=== PATIENT | male | born 1980 | race Caucasian/White ===

== ENCOUNTER → 2016-08-30 | Outpatient (CLI) | payer BC ==
[2016-08-30 16:53] LABS: Basophils # (auto) 0 uL; Basophils % (auto) 0.2 % (0.0-2.0); Eosinophils # (auto) 0.1 uL; Eosinophils % (auto) 0.7 % (0.0-7.0); Hematocrit 45.2 % (41.0-53.0); Hemoglobin 15.2 g/dL (13.5-17.5); Lymphocytes # (auto) 3.3 uL; Lymphocytes % (auto) 31.3 % (10.0-50.0); Mean Corpuscular Hemoglobin 29.5 pg (28.0-32.0); Mean Corpuscular Hgb Conc. 33.5 g/dL (32.0-36.0); Mean Corpuscular Volume 87.9 fL (80.0-100.0); Mean Platelet Volume 11.1 fL (7.4-10.4); Monocytes # (auto) 0.6 uL; Monocytes % (auto) 5.9 % (0.0-12.0); Neutrophils # (auto) 6.5 uL; Neutrophils % (auto) 61.9 % (37.0-80.0); Platelet Count (auto) 271 10^3/uL (140-450); Red Cell Distribution Width 13.6 % (11.6-16.0); White Blood Cell 10.6 10^3/uL (4.4-10.8)
[2016-08-30 17:09] LABS: INR 1.12 (0.9-1.15); Partial Thromboplastin Time 31.8 sec (22.64-33.71); Prothrombin Time 11.5 sec (9.37-12.3)
== END | disposition home or self-care (01) ==
LOC: LAB 14:39
PROVIDERS: ATTEND Internal Medicine Gastroenterology
DX: Z01.812 Encounter for preprocedural laboratory examination (principal); R79.1 Abnormal coagulation profile
CPT/HCPCS: 36415; 85025; 85610; 85730

== ENCOUNTER 2016-09-02 08:06 | Day surgery (SDC) | payer BC ==
[~2016-09-02] VITALS: Ht 182.9 cm; Wt 90.7 kg
[2016-09-02] MEDS ORDERED: SODIUM CHLORIDE LOCK 10 ML ONE (08:14)
[2016-09-02] MEDS ORDERED: diphenhdrAMINE HCL 50 MG/1 ML VL ONE (08:14)
[2016-09-02] MEDS ORDERED: FLUMAZENIL 0.1 MG/ML INJ 10ML MDV IV ONE (08:17)
[2016-09-02] MEDS ORDERED: NALOXONE HCL 0.4 MG/ML VIAL ONE (08:17)
[2016-09-02] MEDS: MIDAZOLAM HCL 5 MG/ML-1ML VIAL ONE ×3 (08:49→08:55)
[2016-09-02] MEDS: fentaNYL CITRATE 100 MCG/2 ML VL ONE ×2 (08:49→08:52)
[2016-09-02] MEDS ORDERED: MIDAZOLAM HCL 5 MG/ML-1ML VIAL ONE (08:55)
[2016-09-02] MEDS ORDERED: fentaNYL CITRATE 100 MCG/2 ML VL ONE (08:55)
[2016-09-02 09:45] VITALS: BP 109/59
== END 2016-09-02 09:45 | disposition home or self-care (01) ==
LOC: GI 08:06
PROVIDERS: ATTEND Internal Medicine Gastroenterology
DX: R19.5 Other fecal abnormalities (principal)
CPT/HCPCS: 45378; J1200; J2250; J3010; J7030

== ENCOUNTER → 2016-10-15 | Outpatient (CLI) | payer BC ==
[2016-10-15 07:47] LABS: Basophils # (auto) 0 uL; Basophils % (auto) 0.2 % (0.0-2.0); Eosinophils # (auto) 0.1 uL; Eosinophils % (auto) 1.2 % (0.0-7.0); Hematocrit 43.6 % (41.0-53.0); Hemoglobin 14.5 g/dL (13.5-17.5); Lymphocytes # (auto) 3.1 uL; Lymphocytes % (auto) 41.6 % (10.0-50.0); Mean Corpuscular Hemoglobin 29.3 pg (28.0-32.0); Mean Corpuscular Hgb Conc. 33.3 g/dL (32.0-36.0); Mean Corpuscular Volume 87.8 fL (80.0-100.0); Mean Platelet Volume 11.1 fL (7.4-10.4); Monocytes # (auto) 0.6 uL; Monocytes % (auto) 7.5 % (0.0-12.0); Neutrophils # (auto) 3.7 uL; Neutrophils % (auto) 49.5 % (37.0-80.0); Platelet Count (auto) 287 10^3/uL (140-450); Red Cell Distribution Width 13.7 % (11.6-16.0); SUSPECT VIEW TRANSMISSION; White Blood Cell 7.4 10^3/uL (4.4-10.8)
[2016-10-15 08:10] LABS: Albumin 4.1 g/dL (3.4-5.0); BUN/Creatinine Ratio 20.6; Bilirubin, Total 0.5 mg/dL (0.2-1.0); Calcium 8.7 mg/dL (8.5-10.1); Potassium 4.1 mmol/L (3.5-5.1); Total Protein 7.6 g/dL (6.4-8.2)
== END | disposition home or self-care (01) ==
LOC: LAB 07:01
PROVIDERS: ATTEND Internal Medicine
DX: R53.83 Other fatigue (principal); K62.5 Hemorrhage of anus and rectum
CPT/HCPCS: 36415; 80053; 80061; 84439; 84443; 85025; 85379

== ENCOUNTER → 2018-02-07 | Outpatient (CLI) | payer BC ==
[2018-02-07 08:23] LABS: Basophils # (auto) 0 uL; Basophils % (auto) 0.2 % (0.0-2.0); Eosinophils # (auto) 0.1 uL; Eosinophils % (auto) 1.4 % (0.0-7.0); Hematocrit 41.7 % (41.0-53.0); Hemoglobin 13.7 g/dL (13.5-17.5); Lymphocytes % (auto) 33.5 % (10.0-50.0); Mean Corpuscular Hemoglobin 27.6 pg (28.0-32.0); Mean Corpuscular Volume 83.6 fL (80.0-100.0); Monocytes # (auto) 0.6 uL; Monocytes % (auto) 9.4 % (0.0-12.0); Neutrophils # (auto) 3.3 uL; Neutrophils % (auto) 55.5 % (37.0-80.0); Platelet Count (auto) 260 10^3/uL (140-450); Red Blood Cells 4.99 10^6/uL (4.5-5.90); Red Cell Distribution Width 15.2 % (11.8-14.3); White Blood Cell 5.9 10^3/uL (4.4-10.8)
[2018-02-07 08:24] LABS: Urine Bacteria NONE SEEN /hpf (None Seen); Urine Blood Negative /uL (Negative); Urine Specific Gravity 1.016 (1.001-1.035); Urine WBC <1 /hpf (0 - 3)
[2018-02-07 09:04] LABS: Micro Albumin 7.06 mg/L (0-30.0)
[2018-02-07 09:19] LABS: Albumin 4.1 g/dL (3.4-5.0); BUN/Creatinine Ratio 12.3; Bilirubin, Total 0.3 mg/dL (0.2-1.0); Calcium 8.8 mg/dL (8.5-10.1); Potassium 4.2 mmol/L (3.5-5.1); Total Protein 7.8 g/dL (6.4-8.2)
== END | disposition home or self-care (01) ==
LOC: LAB 07:51
DX: Z01.89 Encounter for other specified special examinations (principal); R53.83 Other fatigue
CPT/HCPCS: 36415; 80053; 81001; 82043; 82570; 83036; 84403; 85025; 86664; 87086

== ENCOUNTER → 2019-12-09 | Outpatient (CLI) | payer BC | END | disposition home or self-care (01) | LOC: LAB 07:44 | PROVIDERS: ATTEND Nurse Practitioner Family | DX: Z03.818 Encounter for observation for suspected exposure to other biological agents ruled out (principal) | CPT/HCPCS: 87635 ==

== ENCOUNTER → 2021-02-19 | Outpatient (CLI) | payer BC ==
[2021-02-19 11:47] LABS: Basophils # (auto) 0 10 ^3/uL (0-0.2); Basophils % (auto) 0.4 % (0.0-2.0); Eosinophils # (auto) 0.1 10 ^3/uL (0-0.8); Eosinophils % (auto) 1.2 % (0.0-7.0); Hematocrit 45.1 % (41.0-53.0); Hemoglobin 15.7 g/dL (13.5-17.5); Lymphocytes # (auto) 2.8 10 ^3/uL (0.4-5.4); Lymphocytes % (auto) 42.6 % (10.0-50.0); Mean Corpuscular Hemoglobin 30.9 pg (28.0-32.0); Mean Corpuscular Hgb Conc. 34.8 g/dL (32.0-36.0); Mean Corpuscular Volume 88.9 fL (80.0-100.0); Monocytes # (auto) 0.5 10 ^3/uL (0-1.3); Monocytes % (auto) 7.3 % (0.0-12.0); Neutrophils # (auto) 3.1 10 ^3/uL (1.6-8.6); Neutrophils % (auto) 48.5 % (37.0-80.0); Nucleated Red Blood Cells % 0.1 %; Red Blood Cells 5.07 10^6/uL (4.5-5.90); Red Cell Distribution Width 14.2 % (11.8-14.3); White Blood Cell 6.5 10^3/uL (4.4-10.8)
[2021-02-19 12:04] LABS: Albumin 3.9 g/dL (3.4-5.0); Calcium 8.9 mg/dL (8.5-10.1)
[2021-02-19 12:08] LABS: Bilirubin, Total 0.3 mg/dL (0.2-1.0); Total Protein 7.7 g/dL (6.4-8.2)
[2021-02-19 12:36] LABS: Free T4 (Free Thyroxine) 1.04 ng/dL (0.89-1.76); Prostate Specific Antigen 0.45 ng/mL (0.0-4.0)
== END | disposition home or self-care (01) ==
LOC: LAB 11:25
PROVIDERS: ATTEND Internal Medicine
DX: R53.83 Other fatigue (principal); F41.9 Anxiety disorder, unspecified; R35.1 Nocturia; M54.16 Radiculopathy, lumbar region
CPT/HCPCS: 36415; 80053; 80061; 82607; 83036; 84153; 84439; 84443; 85025